=== PATIENT | female | born 2005 | race Caucasian/White ===

== ENCOUNTER 2024-06-25 02:24 | Emergency (ER) | payer MEDICAID ==
[2024-06-25 03:25] VITALS: RESP 16; TEMP 96.6; O2SAT 100
--- NOTE | 2024-06-25 03:44 | ERPHSYRPT ---
- History of Present Illness Time Seen by Provider: 06/25/24 03:42 Source: patient, family Exam Limitations: no limitations Patient Subjective Stated Complaint: I want a test. I've taken 3 home tests and they've all came back negative. Triage Nursing Assessment: Pt ambulated into ER without diff. Pt is wanting a test. Pt states, "I've taken 3 home tests and they've all been negative". Pt really wants a blood test. Pt's LMP was 05/24/24. Pt has regular, normal periods. Pt c/o some nausea occasionally. Physician History: Pt wishes the most accurate pregancy test - denies any symptoms at this time other than mild nausea. No vaginal DC or pelvic symptoms . discussed risk/benefits of testing with pt and family and they wish to proceed with HCG test - declining any other w/u at this time( including screening for strds) and have the capacity to make this choice. THis is ordered. Results discussed with pt and family. Timing/Duration: day(s) Severity: mild (no pain) Associated Symptoms: nausea Allergies/Adverse Reactions: No Known Drug Allergies Allergy (Unverified 06/25/24 03:33) Home Medications: No Reportable Medications [No Reported Medications] 06/25/24 [History] Hx Tetanus, Diphtheria Vaccination/Date Given: Yes Hx Influenza Vaccination/Date Given: No Hx Pneumococcal Vaccination/Date Given: No Travel Risk - International Travel Have you traveled outside of the country in past 3 weeks: No - Emerging Infectious Disease Are you exhibiting symptoms associated with any current EIDs: No - Review of Systems Constitutional: No Fever, No Chills Eyes: No Symptoms Ears, Nose, & Throat: No Symptoms Respiratory: No Cough, No Dyspnea Cardiac: No Chest Pain, No Edema, No Syncope Abdominal/Gastrointestinal: Nausea, No Abdominal Pain, No Vomiting, No Diarrhea Genitourinary Symptoms: No Symptoms, No Dysuria Musculoskeletal: No Back Pain, No Neck Pain Skin: No Rash Neurological: No Dizziness, No Focal Weakness, No Sensory Changes Psychological: No Symptoms Endocrine: No Symptoms Hematologic/Lymphatic: No Symptoms Immunological/Allergic: No Symptoms All Other Systems: Reviewed and Negative - Past Medical History Pertinent Past Medical History: Yes Other Medical History: seasonal allergies - Past Surgical History Past Surgical History: Yes Neuro Surgical History: No Pertinent History Cardiac: No Pertinent History Respiratory: No Pertinent History Gastrointestinal: No Pertinent History Genitourinary: No Pertinent History Musculoskeletal: No Pertinent History Female Surgical History: No Pertinent History - Female History Hx Last Menstrual Period: 05/24/24 Hx Now: No - Social History Smoking Status: Current some day smoker How long have you smoked: 1 month Exposure to second hand smoke: Yes Drug Use: none - Social Determinants of Health Will the patient participate in the screening: Yes Do you worry about a steady place to live?: No Do you have any problems with any of the following?: No known problems In the past 12 months,have you had to go without utilities?: No Transportation Issues: No Has anyone in your support network made you feel unsafe?: No Have you or anyone in your house had to go without enough: No - Nursing Vital Signs Nursing Vital Signs: Initial Vital Signs Temperature 96.6 F 06/25/24 03:24 Pulse Rate 73 06/25/24 03:24 Respiratory Rate 16 06/25/24 03:24 Blood Pressure 129/79 06/25/24 03:24 O2 Sat by Pulse Oximetry 100 06/25/24 03:24 Pain Scale Pain Intensity 0 - Physical Exam General Appearance: no apparent distress, alert Eye Exam: PERRL/EOMI, eyes nml inspection Ears, Nose, Throat Exam: normal ENT inspection, TMs normal, pharynx normal, moist mucous membranes Neck Exam: normal inspection, non-tender, supple, full range of motion Respiratory Exam: normal breath sounds, lungs clear, No respiratory distress Cardiovascular Exam: regular rate/rhythm, normal heart sounds, normal peripheral pulses Gastrointestinal/Abdomen Exam: soft, normal bowel sounds, No tenderness, No distention, No mass, No guarding, No pulsatile mass, No rebound, No hernia Pelvic Exam: deferred Rectal Exam: deferred Back Exam: normal inspection, normal range of motion, No CVA tenderness, No vertebral tenderness Extremity Exam: normal inspection, normal range of motion, pelvis stable Neurologic Exam: alert, oriented x 3, cooperative, normal mood/affect, nml cerebellar function, nml station & gait, sensation nml, No motor deficits Skin Exam: normal color, warm, dry, No rash Lymphatic Exam: No adenopathy SpO2 Interpretation: normal SpO2: 100 O2 Delivery: Room Air - Course Nursing assessment & vital signs reviewed: Yes Ordered Tests: Active Orders 24 hr Category Date Time Status HCG QUALITATIVE, SERUM Stat Lab 06/25/24 03:59 Completed Lab/Rad Data: Laboratory Results 06/25/24 Range/Units 03:59 Serum HCG, Qual NEGATIVE (NEGATIVE) - Progress Progress: improved, re-examined Progress Note: 06/25/24 04:34 pt advised of results, of the limitations of the testing performed ( cannot necessarily detect immediately or very soon after conception and she would be early to detect at this time, although still possible) , and given opportunity for any other w/u that she might wish, but declines any at this time. SHe is advised to f/u with her MACHINE MAINTENANCE SUPERVISOR/PMDS and return meantime if any symptoms or concerns 06/25/24 04:35 06/25/24 04:37 Counseled pt/family regarding: lab results, diagnosis, need for follow-up Medical Desision Making - Independent Historian Additional History obtained from: Family - Discussion of managment Reviewed:: Test results, Need for additional workup Agreed on:: Treatment plan, need for follow-up - Diagnostic Testing Diagnostic test were ordered, analyzed, and reviewed by me: Yes - Risk of complications The pt has a mod risk of morbidity or mortality based on: Need for prescription drug management - Departure Departure Disposition: Home Clinical Impression: Nausea unknown etiology Condition: Good Critical Care Time: No Instructions: Nausea and Vomiting, Adult ED Additional Instructions: Although the test was negative , very early could be possible in some cases, and there can be other conditions causing nausea so followup with your Dr. and MACHINE MAINTENANCE SUPERVISOR is advised. Return meantime if any symptoms or concerns.
[2024-06-25 04:18] LABS: HCG SERUM TEST NEGATIVE (NEGATIVE)
[2024-06-25 04:58] VITALS: BP 111/78; PULSE 69
== END 2024-06-25 04:57 | disposition home or self-care (01) ==
LOC: ED 02:24
DX: Z32.02 Encounter for pregnancy test, result negative (principal); R11.0 Nausea
CPT/HCPCS: 36415; 84703; 99282